=== PATIENT | female | born 1980 | race Caucasian/White ===

== ENCOUNTER 2018-02-14 05:28 | Inpatient (IN) | payer MEDICAID ==
[~2018-02-14] VITALS: Ht 165.1 cm; Wt 73.9 kg
[2018-02-14] MEDS ORDERED: IBUP-2029 PO (05:47)
[2018-02-14 05:56] LABS: UCG SCREEN NEGATIVE
[2018-02-14] MEDS ORDERED: LACTATED RINGERS 1,000 ML IV SCH (06:30)
[2018-02-14] MEDS ORDERED: SKIN ADHESIVE 0.7 GM EA TOP ONE ×2 (06:50→08:46)
[2018-02-14] MEDS ORDERED: LIDOCAINE HCL/PF 1% 10 MG/ML 5ML VIAL ONE ×2 (06:50→08:01)
[2018-02-14] MEDS ORDERED: BUPIVACAINE HCL/PF 0.5% (5MG/ML) 10ML ONE (06:50)
[2018-02-14] MEDS ORDERED: MIDAZOLAM HCL 2 MG/2 ML VIAL ONE (07:42)
[2018-02-14] MEDS ORDERED: ROCURONIUM BROMIDE 10MG/ML VIAL 5ML IV ONE (07:42)
[2018-02-14] MEDS ORDERED: PROPOFOL 200MG/20ML VIAL IV ONE (07:42)
[2018-02-14] MEDS ORDERED: FENTANYL CITRATE/PF 50MCG/ML 5ML VIAL ONE (07:42)
[2018-02-14] MEDS ORDERED: CEFAZOLIN SODIUM 1000MG/VIAL ONE (08:01)
[2018-02-14] MEDS ORDERED: ONDANSETRON HCL 4MG/2ML INJ IV PRN (08:30)
[2018-02-14] MEDS ORDERED: GLYCOPYRROLATE 0.2 MG/ML 2ML VIAL ONE (08:37)
[2018-02-14] MEDS ORDERED: PHENYLEPHRINE HCL 10 MG/ML 1ML (IV VIAL) IV ONE (08:38)
[2018-02-14] MEDS ORDERED: NEOSTIGMINE METHYLSULFATE 1MG/ML 10 ML VIAL ONE (08:38)
[2018-02-14] MEDS: FENTANYL CITRATE/PF 50MCG/ML 2ML VIAL IV PRN ×2 (09:35→09:54)
[2018-02-14 11:40] VITALS: BP 94/56
[2018-02-14 12:00] VITALS: BP 94/66
[2018-02-14] MEDS: SODIUM CHLORIDE 0.45% 1,000 ML IV SCH (14:36)
[2018-02-14 16:00] VITALS: BP 102/65
[2018-02-14 20:00] VITALS: BP 105/64
[2018-02-14] MEDS: HYDROMORPHONE HCL/PF 2MG/ML CPJ IV PRN (21:04)
[2018-02-15] VITALS: BP 112/64
[2018-02-15] MEDS: SODIUM CHLORIDE 0.45% 1,000 ML IV SCH ×2 (02:24→07:36)
[2018-02-15] MEDS: HYDROMORPHONE HCL/PF 2MG/ML CPJ IV PRN ×3 (02:26→12:19)
[2018-02-15 04:00] VITALS: BP 108/66
[2018-02-15 08:00] VITALS: BP 108/69
[2018-02-15 09:58] VITALS: BP 108/69
[2018-02-15 12:00] VITALS: BP 110/70
[2018-02-15 12:19] VITALS: BP 108/69
== END 2018-02-15 14:57 | disposition home or self-care (01) | DRG 263 ==
LOC: OR 05:28 → 6EST 05:29
PROVIDERS: ADMIT Specialist; ATTEND Specialist
PROC: 0FT44ZZ Resection of Gallbladder, Percutaneous Endoscopic Approach (ICD-10-PCS; principal; 2018-02-14 07:30)
DX: K80.20 Calculus of gallbladder without cholecystitis without obstruction (principal); Z79.899 Other long term (current) drug therapy
CPT/HCPCS: 81025; 88304; J0690; J1170; J2250; J2370; J2704; J2710; J3010; J3490; J7120